=== PATIENT | female | born 1995 | race Caucasian/White ===

== ENCOUNTER 2018-07-04 00:25 | Emergency (ER) | payer SELFPAY ==
[~2018-07-04] VITALS: Ht 162.6 cm; Wt 74.8 kg
[2018-07-04 01:05] LABS: BILIRUBIN,URINE NEGATIVE (NEGATIVE); CLARITY,URINE CLEAR; COLOR,URINE YELLOW; GLUCOSE, URINE (UA) NEGATIVE (NEGATIVE); KETONES,URINE NEGATIVE (NEGATIVE); NITRITE,URINE NEGATIVE (NEGATIVE); PH,URINE 6.5 (5-9); PROTEIN,URINE NEGATIVE (NEGATIVE)
[2018-07-04 01:06] LABS: BACTERIA,URINE TRACE /HPF; CALCIUM OXALATE CRYSTALS,UR FEW /LPF; HCG,QUALITATIVE URINE NEGATIVE (NEGATIVE); LEUKOCYTE ESTERASE ,URINE TRACE (NEGATIVE)
[2018-07-04] MEDS ORDERED: DEXAMETHASONE 10 MG/ML (DECADRON) 1 ML VIAL IM ONE (01:30)
[2018-07-04] MEDS ORDERED: CYCLOBENZAPRINE 10 MG (FLEXERIL) TAB PO SCH (01:30)
[2018-07-04] MEDS ORDERED: methylPREDNISolone 80 MG/ML (DEPO MEDROL) VIAL IM ONE (01:30)
--- NOTE | 2018-07-04 01:30 | ED Back Pain ---
General Chief Complaint: Back Problems Stated Complaint: LOWER BACK PAIN Nursing Triage Note: "has been hurting really bad for the last week and a half, He just talked me into finally coming in" Nursing Sepsis Screen: No Definite Risk Source of Information: Patient History of Present Illness Date Seen by Provider: Jul 04, 2018 Time Seen by Provider: 01:00 Initial Comments 22-year-old female presenting with chronic low back pain. She has been following with Amita Greene to the [facility] and [place]. She was recently incarcerated for a short time and had lost her healthcare during that time. She has not reestablished with Amita since getting out of [facility]. She has had increasing pain over the last few months but much worse in the last 7-10 days. She denies any new or recent injury. She has had no sciatic nerve pain going into her legs but has had some numbness at times in her leg on the right side. She states that the chronic pain in her back is the same as it always has been. In the past the steroid shots that she had been getting in her back had been helping. She denies any complications with urination. She's had no burning or loss of bladder control. She does have a history of kidney stones but states that this feels different. She's had no blood in her urine. Allergies and Home Medications Allergies Coded Allergies: buspirone (Verified Allergy, Unknown, 07/04/18) fluticasone (Verified Allergy, Unknown, 07/04/18) salmeterol (Verified Allergy, Unknown, 07/04/18) Home Medications Cyclobenzaprine HCl 10 Mg Tablet, 10 MG PO Q8H PRN for SPASMS Prescribed by: SUZANNE GÓMEZ on 07/04/18205 Hydrocodone Bit/Acetaminophen 1 Tab Tab, 1 EACH PO Q6H PRN for PAIN-SEVERE Prescribed by: SUZANNE GÓMEZ on 07/04/18205 Patient Home Medication List Home Medication List Reviewed: Yes Review of Systems Constitutional: No chills, No fever EENTM: no symptoms reported Respiratory: no symptoms reported Cardiovascular: no symptoms reported Gastrointestinal: no symptoms reported Genitourinary: No discharge, No dysuria, No frequency, No hematuria, No hesitancy, No incontinence, No nocturia, No pain : No Musculoskeletal: back pain (acute on chronic) Skin: no symptoms reported; No rash Past Lcdtupl-Nuoagg-Oqkafu Hx Past Med/Social Hx: Reviewed Nursing Past Med/Soc Hx Patient Social History Alcohol Use: Rarely Uses Recreational Drug Use: No Smoking Status: Current Everyday Smoker Type Used: Cigarettes 2nd Hand Smoke Exposure: No Recent Foreign Travel: No Contact w/Someone Who Travel: No Recent Infectious Disease Expo: No Recent Hopitalizations: No Physical Abuse: No Sexual Abuse: No Mistreated: No Fear: No Seasonal Allergies Seasonal Allergies: No Past Medical History Surgeries: Yes (right knee torn meniscus) Tonsillectomy : No Last Menstrual Period: May 31, 2018 Musculoskeletal: Yes ("sciatic pain, arthritis and bulging disc") Arthritis, Chronic Back Pain Physical Exam Vital Signs Vital Signs - First Documented 07/04/18 00:35 Temp 96.5 Pulse 111 Resp 16 B/P (MAP) 139/87 (104) Pulse Ox 97 Capillary Refill : Less Than 3 Seconds Height, Weight, BMI Height: 5'4.00" Weight: 165lbs. oz. 74.171834hx; BMI Method:Stated General Appearance: No Apparent Distress, WD/WN HEENT: PERRL/EOMI, Pharynx Normal Neck: Full Range of Motion, Normal Inspection, Non Tender, Supple Cardiovascular: Regular Rate, Rhythm, Normal Peripheral Pulses Respiratory: Chest Non Tender, Lungs Clear, Normal Breath Sounds Back: Muscle Spasm (and tenderness over the paraspinal muscles in the lumbar region), Vertebral Tenderness (low lumbar spine) Neurologic/Psychiatric: Alert, Oriented x3; No Abnormal Gait Skin: Normal Color, Warm/Dry; No Rash Progress/Results/Core Measures Results/Orders Lab Results Laboratory Tests Test 07/04/18 00:50 Range/Units Urine Color YELLOW Urine Clarity CLEAR Urine pH 6.5 5-9 Urine Specific Reading 1.020 1.016-1.022 Urine Protein NEGATIVE NEGATIVE Urine Glucose (UA) NEGATIVE NEGATIVE Urine Ketones NEGATIVE NEGATIVE Urine Nitrite NEGATIVE NEGATIVE Urine Bilirubin NEGATIVE NEGATIVE Urine Urobilinogen 1.0 NORMAL MG/DL Urine Leukocyte Esterase TRACE NEGATIVE Urine RBC (Auto) NEGATIVE NEGATIVE Urine RBC NONE /HPF Urine WBC 2-5 /HPF Urine Squamous Epithelial Cells 5-10 /HPF Urine Crystals PRESENT H /LPF Urine Calcium Oxalate Crystals FEW H /LPF Urine Bacteria TRACE /HPF Urine Casts NONE /LPF Urine Mucus NEGATIVE /LPF Urine Culture Indicated NO Urine Test NEGATIVE NEGATIVE My Orders Orders - SUZANNE GÓMEZ MD Ua Culture If Indicated (07/04/18 00:46) Hcg,Qualitative Urine (07/04/18 00:46) Dexamethasone Injection (Decadron Inject (07/04/18 01:30) Methylprednisolone Acetate Inj (Depo-Med (07/04/18 01:30) Cyclobenzaprine Tablet (Flexeril Tablet) (07/04/18 01:30) Rx-Hydrocodone/Apap 5-325 Mg (Rx-Vicodin (07/04/18 01:36) Medications Given in ED Current Medications Medications Dose Ordered Sig/Jo Route Start Time Stop Time Status Last Admin Dose Admin Acetaminophen/ Hydrocodone Bitart 1 ea STK-MED ONCE PO 07/04/18 01:36 07/04/18 01:38 DC 07/04/18 01:44 1 EA Dexamethasone Sodium Phosphate 10 mg ONCE ONCE IM 07/04/18 01:30 07/04/18 01:33 DC 07/04/18 01:37 10 MG Methylprednisolone Acetate 80 mg ONCE ONCE IM 07/04/18 01:30 07/04/18 01:33 DC 07/04/18 01:38 80 MG Vital Signs/I&O 07/04/18 07/04/18 00:35 02:11 Temp 96.5 97.0 Pulse 111 97 Resp 16 16 B/P (MAP) 139/87 (104) 128/78 (95) Pulse Ox 97 97 Blood Pressure Mean: 104 Progress Progress Note : Progress Note Urinalysis was obtained and was negative for and no sign of infection. She did have some small amount of calcium oxalate crystals consistent with her history of kidney stones. Advised patient that she needs to drink more water to try and prevent new kidney stones from forming. Will give steroids to try and help with pain and inflammation. Will also try cyclobenzaprine for muscle spasms. We will try a few hydrocodone for severe pain and help her rest. Counseled on follow-up and return precautions. Since she has had no new trauma or injury to her back Will defer imaging at this time. Advised to get back with Amita and get reestablished clinic for her acute exacerbation of her chronic low back pain Departure Impression Primary Impression: Acute exacerbation of chronic low back pain Additional Impression: Calcium oxalate crystals present in urine Disposition: HOME, SELF-CARE Condition: Stable Departure-Patient Inst. Decision time for Depature: 02:03 Referrals: NO,LOCAL PHYSICIAN (PCP) Primary Care Physician Patient Instructions: Chronic Pain (DC), Low Back Pain (DC) Add. Discharge Instructions: Call Amita Nika to get follow up for your chronic low back pain and get re -established with clinic so you can get your pain back under control Try the muscle relaxer and medicine for your back pain to help with your acute pain until you can see her in clinic in next few days Drink more water and stay well hydrated All discharge instructions reviewed with patient and/or family. Voiced understanding. Scripts Hydrocodone Bit/Acetaminophen (Hydrocodone/Acetaminophen 5/325mg Tablet) 1 Tab Tab 1 EACH PO Q6H PRN for PAIN-SEVERE MDD 10 for 3 Days, #12 TAB 0 Refills Prov: SUZANNE GÓMEZ MD 07/04/18 Cyclobenzaprine HCl (Cyclobenzaprine HCl) 10 Mg Tablet 10 MG PO Q8H PRN for SPASMS for 10 Days, #30 TAB 0 Refills Prov: SUZANNE GÓMEZ MD 07/04/18 SUZANNE GÓMEZ MD Jul 04, 2018 01:30
[2018-07-04] MEDS ORDERED: RX-HYDROCODONE/APAP 5/325 MG #4 TAB PK PO ONE (01:36)
[2018-07-04] MEDS ORDERED: ACHD5005 PO (02:06)
[2018-07-04] MEDS ORDERED: CYCL10TA9 PO (02:06)
[2018-07-04 02:11] VITALS: BP 128/78
== END 2018-07-04 02:11 | disposition home or self-care (01) ==
LOC: ER FS 00:28
DX: M54.5 Low back pain (principal); G89.29 Other chronic pain; R82.998 Other abnormal findings in urine; F17.210 Nicotine dependence, cigarettes, uncomplicated; Z90.89 Acquired absence of other organs; Z88.8 Allergy status to other drugs, medicaments and biological substances; Z87.442 Personal history of urinary calculi
CPT/HCPCS: 81000; 84703; 99284

== ENCOUNTER 2022-12-28 00:29 | Emergency (ER) | payer MEDICAID, OTHER ==
[~2022-12-28] VITALS: Ht 162.5 cm; Wt 88.0 kg
[~2022-12-28 00:29] MED LIST: ACHD5005 PO; CYCL10TA25 PO
[2022-12-28 00:35] VITALS: BP 133/90
--- NOTE | 2022-12-28 00:55 | ED Back Pain ---
General Stated Complaint: BACK PAIN Source of Information: Patient Exam Limitations: No Limitations History of Present Illness Date Seen by Provider: Dec 28, 2022 Time Seen by Provider: 00:43 Initial Comments 27-year-old female with fibromyalgia presents for back pain stating "my fibro is acting up." She denies any new injuries. Symptoms present since yesterday afternoon. No loss of bowel or bladder control, saddle anesthesia, lower extremity weakness numbness or tingling. All other systems reviewed and negative except documented per HPI. Voice recognition software was used to help create this chart Allergies and Home Medications Allergies Coded Allergies: buspirone (Verified Allergy, Unknown, 07/04/18) fluticasone (Verified Allergy, Unknown, 07/04/18) salmeterol (Verified Allergy, Unknown, 07/04/18) Patient Home Medication List Home Medication List Reviewed: Yes Cyclobenzaprine HCl (Cyclobenzaprine HCl) 10 Mg Tablet, 10 MG PO Q8H PRN for SPASMS Prescribed by: SUZANNE GÓMEZ on 07/04/18 0206 Hydrocodone Bit/Acetaminophen (Lortab 5 Mg Tablet) 1 Tab Tab, 1 EACH PO Q6H PRN for PAIN-SEVERE Prescribed by: SUZANNE GÓMEZ on 07/04/18 0206 Review of Systems Constitutional: see HPI Past Jxlncsu-Wstoth-Twcdvz Hx Patient Social History Tobacco Use?: Yes Use of E-Cig and/or Vaping dev: No Substance use?: No Alcohol Use?: No Seasonal Allergies Seasonal Allergies: No Past Medical History Surgeries: Yes (right knee torn meniscus) Tonsillectomy Musculoskeletal: Yes ("sciatic pain, arthritis and bulging disc") Arthritis, Chronic Back Pain Physical Exam Vital Signs Capillary Refill : Height, Weight, BMI Height: 5'4.00" Weight: 165lbs. oz. 74.032066kq; BMI Method:Stated General Appearance: No Apparent Distress, WD/WN HEENT: Normal ENT Inspection, Pharynx Normal Neck: Non Tender, Supple Cardiovascular: Regular Rate, Rhythm, No Murmur Respiratory: Chest Non Tender, Lungs Clear, Normal Breath Sounds Gastrointestinal: No Organomegaly, Non Tender, Soft Back: Normal Inspection, Other (Bilateral paraspinal tenderness without any mi dline tenderness. 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 I advised her that I did not feel like narcotic pain medication is appropriate in this setting as this is a chronic pain without new injury. I did offer her a shot of IM Toradol and she states "that does not do shit." I again advised that I was unwilling to treat her with narcotic pain medication given the chronicity of her symptoms. She walked out without difficulty AGAINST MEDICAL ADVICE. She is alert and oriented and has capacity make her own medical decisions. Impression Primary Impression: Chronic back pain Qualified Codes: M54.50 - Low back pain, unspecified; G89.29 - Other chronic pain Additional Impression: Drug-seeking behavior Disposition: 07 AGAINST MEDICAL ADVICE Condition: Against Medical Advice Departure-Patient Inst. Referrals: CORNELIUS FERREIRA APRN (PCP) Primary Care Physician GUILLERMO STARKS DO Dec 28, 2022 00:55
== END 2022-12-28 00:55 | disposition left against medical advice (07) ==
LOC: EDUNIT# 00:29 → ER FS 00:32
DX: M54.9 Dorsalgia, unspecified (principal); G89.29 Other chronic pain; Z76.5 Malingerer [conscious simulation]; Z72.0 Tobacco use; Z28.310 Unvaccinated for COVID-19
CPT/HCPCS: 99281